=== PATIENT | male | born 1995 | race Caucasian/White ===

== ENCOUNTER 2021-06-07 12:17 | Emergency (ER) | payer OTHER ==
[~2021-06-07] VITALS: Ht 188 cm; Wt 112.5 kg
[2021-06-07 12:20] VITALS: BP 155/91
[2021-06-07 14:05] LABS: APPEARANCE,URINE CLEAR (CLEAR); BILIRUBIN,URINE NEGATIVE (NEGATIVE); BLOOD, URINE TRACE-I (NEGATIVE); COLOR,URINE YELLOW (YELLOW); LEUKOCYTE ESTERASE ,URINE NEGATIVE (NEGATIVE); NITRITE, URINE NEGATIVE (NEGATIVE); PH,URINE 6.5 (5.0-9.0); UGLUCOSE NEGATIVE (NEGATIVE)
[2021-06-07] MEDS ORDERED: NACL 0.9% 1,000 ML IV ONE (14:45)
[2021-06-07] MEDS ORDERED: KETOROLAC 30 MG/ML VIAL IVP ONE (14:45)
--- NOTE | 2021-06-07 14:57 | NUR ---
25 y/o male referred from primary care to rule out appendicitis. Pt c/o RLW abd pain x 3 wks intermittently. Denies n/v/d. Abd soft, slightly tender to palp. Bowel sounds present x 4. RR even and unlabored. States 8/10 pain at this time medhx: denies
[2021-06-07 15:04] LABS: RBC,URINE 0-5 /HPF (0-5); WBC,URINE 0-5 /HPF (0-5)
[2021-06-07 15:13] LABS: ANION GAP 15.2 (8-16); CARBON DIOXIDE 23.1 mmol/L (21-32); CREATININE 0.8 mg/dL (0.6-1.3); POTASSIUM 4.3 mmol/L (3.5-5.1)
[2021-06-07 15:20] LABS: ALBUMIN 4.5 g/dL (3.4-5.0); TOTAL BILIRUBIN 0.7 mg/dL (0.0-1.0)
--- NOTE | 2021-06-07 15:27 | NUR ---
Patient taken to CT via wheelchair
--- NOTE | 2021-06-07 16:08 | NUR ---
Pt states he is feeling better at this time. made aware
[2021-06-07 16:16] LABS: BASOPHILS % (AUTO) 0.8 % (0.0-2.0); EOSINOPHILS # (AUTO) 0.1 K/uL (0-0.4); EOSINOPHILS % (AUTO) 2.1 % (0.0-4.0); HEMATOCRIT 45.5 % (36-52); HEMOGLOBIN 16.1 g/dL (12.0-18.0); LYMPHOCYTES # (AUTO) 2.5 K/uL (2.0-11.5); LYMPHOCYTES % (AUTO) 44.1 % (20.5-51.1); MEAN CORPUSCULAR HEMOGLOBIN 30 pg (27-31); MEAN CORPUSCULAR HGB CONC 35 g/dL (33-37); MEAN CORPUSCULAR VOLUME 83.9 fL (80-94); MONOCYTES # (AUTO) 0.5 K/uL (0.8-1.0); MONOCYTES % (AUTO) 8.7 % (1.7-9.3); NEUTROPHILS # (AUTO) 2.5 K/uL (1.8-7.7); NEUTROPHILS % (AUTO) 44.3 % (42.2-75.2); PLATELET COUNT (AUTO) 279 K/uL (140-450); RED BLOOD CELL COUNT(AUTO) 5.42 MIL/uL (4.20-6.10); WHITE BLOOD COUNT (AUTO) 5.6 K/uL (4.8-10.8)
[2021-06-07] MEDS ORDERED: METR-435 PO (16:40)
[2021-06-07] MEDS ORDERED: metroNIDAZOLE 250 MG TAB PO ONE (16:40)
[2021-06-07] MEDS ORDERED: AMOX-1000 PO (16:40)
[2021-06-07] MEDS ORDERED: ACETAMINOPHEN EXTRA STRENGTH 500 MG TAB PO ONE (16:40)
[2021-06-07] MEDS ORDERED: ONDA-188 SL (16:40)
[2021-06-07] MEDS ORDERED: AMOXIL/CLAVULANATE 875/125 MG 1 TAB PO ONE (16:40)
[2021-06-07 17:02] VITALS: BP 152/88
--- NOTE | 2021-06-07 17:03 | NUR ---
Patient discharged with v/s stable. Written and verbal after care instructions given and explained. Patient alert, oriented and verbalized understanding of instructions. Ambulatory with steady gait. All questions addressed prior to discharge. ID band removed. Patient advised to follow up with PMD. Rx of Augmentin, Flagyl, Zofran given. Patient educated on indication of medication including possible reaction and side effects. Opportunity to ask questions provided and answered.
[2021-06-07] MEDS ORDERED: MORPHINE SULFATE 4 MG/ML SYR ONE (17:08)
[2021-06-07] MEDS ORDERED: PIPERACILLIN/TAZOBACTAM 4.5 GM VIAL IV ONE (17:09)
== END 2021-06-07 17:03 | disposition home or self-care (01) ==
LOC: MED 12:17
DX: K52.9 Noninfective gastroenteritis and colitis, unspecified (principal); Z79.899 Other long term (current) drug therapy
CPT/HCPCS: 36415; 74177; 80053; 81001; 85025; 96361; 96374; 99285; J1885; J2270; J2543; Q9967; J7030